=== PATIENT | female | born 1960 | race Caucasian/White ===

== ENCOUNTER 2017-05-23 08:44 | Emergency (ER) | payer BC ==
[~2017-05-23] VITALS: Ht 165.1 cm; Wt 50.0 kg
[~2017-05-23 08:44] MED LIST: BENADRYL25 MG PO; CALCIUM + D 6001 TA1 PO; LEXAPRO 10MG10 MG PO; REMERON 15M15 MG/TAB PO; XANAX 0.5MG0.5 MG PO; XANAX XR1 M1 PO; XANAX XR1 MG PO; XANAX0.5 MG PO
[2017-05-23 08:50] VITALS: TEMP 98.6
[2017-05-23 09:41] LABS: BASO # 0.1 (0.0-0.2); BASO % 0.9 % (0.0-2.0); EOS # 0.2 (0.0-0.7); EOS % 2.3 % (0-4.0); GRAN # 4.2 (1.4-6.5); GRAN % 64.9 % (42.2-75.2); HEMATOCRIT 43.7 % (37.0-47.0); HEMOGLOBIN 15.1 g/dl (12.5-16.0); LYMPH # 1.6 (1.2-3.4); LYMPH % 24.7 % (20.0-51.0); MEAN CELL VOLUME 94 fl (80.0-100.0); MEAN CORPUSCULAR HEMOGLOBIN 32 pg (27.0-31.0); MEAN CORPUSCULAR HGB CONC 35 g/dl (33.0-37.0); MEAN PLATELET VOLUME 9.9 fl (7.4-10.4); MONO # 0.5 (0.1-0.6); MONO % 6.9 % (1.7-9.3); PLATELET COUNT 236 K/mm3 (130-400); RED BLOOD COUNT 4.67 M/mm3 (4.10-5.30); REDCELL DISTRIBUTION WIDTH-CV 12.4 % (11.5-14.5); WHITE BLOOD COUNT 6.5 K/mm3 (4.8-10.8)
[2017-05-23 09:55] LABS: ADJUSTED CALCIUM 8.9 mg/dL (8.4-10.2); ALANINE AMINOTRANSFERASE 51 U/L (9-52); ALBUMIN 4.6 gm/dL (3.5-5.0); ALKALINE PHOSPHATASE 43 U/L (50-136); ANION GAP 10 mmol/L (7-16); BILIRUBIN,TOTAL 0.5 mg/dL (0.0-1.0); BLOOD UREA NITROGEN 18 mg/dL (7-17); CALCIUM 9.4 mg/dL (8.4-10.2); CARBON DIOXIDE 24 mmol/L (22-30); CHLORIDE 105 mmol/L (98-107); CREATININE, serum 0.74 mg/dL (0.52-1.25); GLUCOSE 120 mg/dL (74-106); MAGNESIUM 1.7 mg/dL (1.6-2.3); POTASSIUM 4.3 mmol/L (3.4-5.0); SODIUM 138 mmol/L (137-145); TOTAL PROTEIN 7.3 gm/dL (6.4-8.2)
[2017-05-23 10:07] LABS: TROPONIN-I < 0.012 ng/mL (0.000-0.034)
[2017-05-23 10:57] VITALS: BP 99/66; PULSE 72
== END 2017-05-23 10:58 | disposition home or self-care (01) ==
LOC: COL.ER 08:44
PROVIDERS: Physician Assistant
DX: R00.2 Palpitations (principal); R03.1 Nonspecific low blood-pressure reading; F41.9 Anxiety disorder, unspecified; F17.200 Nicotine dependence, unspecified, uncomplicated

== ENCOUNTER → 2017-07-29 | Outpatient (CLI) | payer BC | LOC: COL.RAD 08:50 | DX: M25.512 Pain in left shoulder (principal) | CPT/HCPCS: A9585; Q9967 ==

== ENCOUNTER → 2018-04-14 | Outpatient (CLI) | payer BC | LOC: MC.RAD 13:55 | DX: Z12.31 Encounter for screening mammogram for malignant neoplasm of breast (principal) ==

== ENCOUNTER → 2019-05-16 | Outpatient (CLI) | payer BC | LOC: COL.PUL 07:33 | DX: J44.9 Chronic obstructive pulmonary disease, unspecified (principal); F17.210 Nicotine dependence, cigarettes, uncomplicated ==

== ENCOUNTER → 2020-06-06 | Outpatient (CLI) | payer BC | LOC: MC.RAD 09:09 | DX: Z12.31 Encounter for screening mammogram for malignant neoplasm of breast (principal) ==

== ENCOUNTER → 2021-03-19 | Outpatient (CLI) | payer BC | LOC: COL.RAD 07:46 | DX: M25.511 Pain in right shoulder (principal) | CPT/HCPCS: A9585; Q9967 ==

== ENCOUNTER → 2021-07-22 | Outpatient (CLI) | payer BC | LOC: COL.RAD 07:19 | DX: Z01.812 Encounter for preprocedural laboratory examination (principal); N20.0 Calculus of kidney | CPT/HCPCS: Q9967 ==

== ENCOUNTER → 2021-12-04 | Outpatient (CLI) | payer BC | LOC: MC.RAD 10:46 | DX: Z12.31 Encounter for screening mammogram for malignant neoplasm of breast (principal) ==

== ENCOUNTER → 2022-04-08 | Outpatient (CLI) | payer BC | LOC: MHCPAIN 09:49 | DX: M54.6 Pain in thoracic spine (principal); M41.25 Other idiopathic scoliosis, thoracolumbar region; M79.18 Myalgia, other site | CPT/HCPCS: G0463 ==

== ENCOUNTER → 2022-05-05 | Outpatient (CLI) | payer BC | LOC: MHCPAIN 10:13 | DX: M41.25 Other idiopathic scoliosis, thoracolumbar region (principal); M79.18 Myalgia, other site; M54.6 Pain in thoracic spine | CPT/HCPCS: G0463 ==

== ENCOUNTER → 2022-06-09 | Outpatient (CLI) | payer BC | LOC: MHCPAIN 11:13 | DX: M54.6 Pain in thoracic spine (principal); M41.25 Other idiopathic scoliosis, thoracolumbar region; M79.18 Myalgia, other site | CPT/HCPCS: G0463 ==

== ENCOUNTER → 2022-08-11 | Outpatient (CLI) | payer BC | LOC: MHCPAIN 10:14 | DX: M25.512 Pain in left shoulder (principal); M54.6 Pain in thoracic spine; M41.24 Other idiopathic scoliosis, thoracic region; M79.18 Myalgia, other site | CPT/HCPCS: G0463 ==

== ENCOUNTER → 2022-08-11 | Outpatient (CLI) | payer BC | LOC: COL.RAD 12:02 | DX: M25.512 Pain in left shoulder (principal); J44.9 Chronic obstructive pulmonary disease, unspecified ==

== ENCOUNTER → 2023-07-22 | Outpatient (CLI) | payer BC | LOC: MHCPAIN 12:59 | DX: M47.812 Spondylosis without myelopathy or radiculopathy, cervical region (principal); M54.12 Radiculopathy, cervical region; M48.02 Spinal stenosis, cervical region | CPT/HCPCS: J1100; Q9967 ==

== ENCOUNTER → 2023-08-10 | Outpatient (CLI) | payer BC | LOC: MHCPAIN 08:27 | DX: M54.2 Cervicalgia (principal); M48.02 Spinal stenosis, cervical region; M54.6 Pain in thoracic spine | CPT/HCPCS: G0463 ==

== ENCOUNTER → 2024-02-01 | Outpatient (CLI) | payer BC | LOC: MHCPAIN 07:58 | DX: M47.812 Spondylosis without myelopathy or radiculopathy, cervical region (principal); M79.18 Myalgia, other site; G24.8 Other dystonia | CPT/HCPCS: G0463 ==

== ENCOUNTER → 2024-05-24 | Outpatient (CLI) | payer BC | LOC: MHCPAIN 08:07 | DX: M43.12 Spondylolisthesis, cervical region (principal); M48.02 Spinal stenosis, cervical region | CPT/HCPCS: G0463 ==

== ENCOUNTER → 2024-06-20 | Outpatient (CLI) | payer BC | LOC: MC.RAD 08:47 | DX: Z12.31 Encounter for screening mammogram for malignant neoplasm of breast (principal) ==

== ENCOUNTER → 2024-06-21 | Outpatient (CLI) | payer BC | LOC: MHCPAIN 09:28 | DX: M47.816 Spondylosis without myelopathy or radiculopathy, lumbar region (principal); M48.061 Spinal stenosis, lumbar region without neurogenic claudication; M79.18 Myalgia, other site; G96.191 Perineural cyst | CPT/HCPCS: G0463 ==

== ENCOUNTER → 2024-06-22 | Outpatient (CLI) | payer BC ==
[~2024-06-22] MED LIST changes: +Iohexol 300 - 10 ML VIAL ONE; +Lidocaine PF 2% (20 MG/ML) 2 ML VIAL ONE
== END ==
LOC: MHCPAIN 08:21
DX: M54.16 Radiculopathy, lumbar region (principal); M41.86 Other forms of scoliosis, lumbar region
CPT/HCPCS: J1100; Q9967

== ENCOUNTER → 2024-07-11 | Outpatient (CLI) | payer BC ==
[~2024-07-11] MED LIST changes: -Iohexol 300 - 10 ML VIAL ONE; -Lidocaine PF 2% (20 MG/ML) 2 ML VIAL ONE
== END ==
LOC: MHCPAIN 10:10
DX: M47.816 Spondylosis without myelopathy or radiculopathy, lumbar region (principal); M48.061 Spinal stenosis, lumbar region without neurogenic claudication; M54.50 Low back pain, unspecified; M41.86 Other forms of scoliosis, lumbar region; M54.2 Cervicalgia; M43.12 Spondylolisthesis, cervical region; M25.512 Pain in left shoulder; G96.191 Perineural cyst; M81.0 Age-related osteoporosis without current pathological fracture
CPT/HCPCS: G0463

== ENCOUNTER → 2024-08-08 | Outpatient (CLI) | payer BC | LOC: MHCPAIN 09:39 | DX: M25.512 Pain in left shoulder (principal); M54.2 Cervicalgia; M54.50 Low back pain, unspecified; M41.86 Other forms of scoliosis, lumbar region; M47.816 Spondylosis without myelopathy or radiculopathy, lumbar region | CPT/HCPCS: G0463 ==